=== PATIENT | female | born 1985 | race Caucasian/White ===

== ENCOUNTER 2018-09-15 14:35 | Emergency (ER) | payer OTHER, SELFPAY ==
[2018-09-15 14:45] VITALS: BP 136/88; PULSE 88; RESP 14; TEMP 37.2; O2SAT 100
--- NOTE | 2018-09-15 14:46 | DI.US.S_ITS ---
PROCEDURE: US OB LIMITED INDICATIONS: 10 WEEKS, VAGINAL BLEEDING OUTSIDE/PRIOR DATING DATA: Last menstrual period (LMP): 07/06/18. LMP-based estimated date of delivery (ANANTH): 10 weeks 1 day. First dating scan (date and location): 09/15/18. Estimated date of delivery (ANANTH) from first dating scan: 6 weeks 4 days. TECHNIQUE: Real-time scanning was performed of the fetus, with image documentation. COMPARISON: None. FINDINGS: Uterus is slightly prominent in size and contains an irregular shaped gestational sac that has a mean gestational sac diameter of 2.1 cm, correlating with an estimated gestational age of 7 weeks 0 days. A crown-rump length is visualized, measuring approximately 4 mm in length, which correlates with an estimated gestational age of 6 weeks 1 day. heart motion was not detected. No significant subchorionic hemorrhage is appreciated. A pillar type soft tissue structure protruding into the gestational sac demonstrate avid vascularity which appears to be separate from the gestational sac. There is a large simple appearing left adnexal cyst that measures up to 6.7 cm, which is not definitely connected to the left ovary. The left ovary is mildly enlarged at 4.6 x 1.5 x 2.7 cm. A simple appearing 2.8 cm left ovarian cyst is noted. The right ovary is within normal limits. Imaged bilateral maternal kidneys are unremarkable without hydronephrosis. IMPRESSION: 1. Abnormal appearing gestational sac and pole is of uncertain significance and could potentially represent a very early . A followup pelvic ultrasound in 2 weeks is recommended to document viability and interval change of the soft tissue structure with projecting into the gestational sac it demonstrates avid vascularity. 2. 6 cm left adnexal cyst. An additional left ovarian cyst is present. Dictated by: Lalit Garrido M.D. on 09/15/2018 at 15:22 Approved by: Lalit Garrido M.D. on 09/15/2018 at 15:27
[2018-09-15] MEDS: MORPHINE 2 MG/ML INJ IV (15:24)
[2018-09-15] MEDS: ONDANSETRON 4 MG/2 ML INJ IV (15:24)
[2018-09-15 15:41] LABS: Alanine Aminotransferase 28 IU/L (9-52); Albumin 4.6 g/dL (3.5-5.0); Albumin Globulin Ratio 1.6 (1.0-2.8); Alkaline Phosphatase 45 U/L (38-126); Aspartate Aminotransferase 19 IU/L (14-36); Bilirubin Total 0.4 mg/dL (0.2-1.3); Blood Urea Nitrogen 7 mg/dL (7-17); Calcium 9.4 mg/dL (8.4-10.2); Carbon Dioxide 24 mmol/L (22-32); Chloride 102 mmol/L (98-107); Estimated Glomerular Filt Rate > 60.0 mL/min (>60); Globulin 2.9 g/dL (1.7-4.1); Glucose 101 mg/dL (70-100); HEMOLYSIS < 15 (0-50); Potassium 3.6 mmol/L (3.4-5.1); Sodium 135 mmol/L (137-145); Total Protein 7.5 g/dL (6.3-8.2)
[2018-09-15 16:00] VITALS: BP 116/55; PULSE 74; RESP 16; O2SAT 100
[2018-09-15 16:00] LABS: Add Manual Diff / Slide Review NO; Basophils Absolute Auto 0 /uL (0-100); Basophils Percent Auto 0.1 % (0-2); Eosinophils Absolute Auto 100 /uL (0-450); Eosinophils Percent Auto 0.9 % (2-4); Hematocrit 37.8 % (36-46); Hemoglobin 13.1 g/dL (12.0-16.0); Lymphocytes Absolute Auto 1700 /uL (1100-4500); Mean Corpuscular HGB Conc 34.8 % (30-36); Mean Corpuscular Hemoglobin 30.4 PG (26-34); Mean Corpuscular Volume 87.3 fL (80-100); Monocytes Absolute Auto 900 /uL (0-900); Neutrophils Absolute Auto 10300 /uL (1500-7000); Platelet Count 266 X10^3/uL (150-400); Red Blood Cell Count 4.33 X10^6/uL (4.0-5.2); Red Cell Distribution Width 12.5 % (11.6-14.8)
--- NOTE | 2018-09-15 16:09 | ED.PREGNANCY ---
HPI - <JUICE Liriano - Last Filed: 09/15/18 22:13> General Chief complaint: Vaginal Bleeding Stated complaint: 10wks preg, thinks having a miscarriage Time Seen by Provider: 09/15/18 14:42 Source: patient Mode of arrival: ambulatory Limitations: no limitations History of Present Illness HPI Narrative: Healthy 32-year-old female that is a nonsmoker that is approximately 10 weeks 1 sent here from [facility] for further evaluation due to vaginal bleeding and cramping since last night. She reports that she has also been passing clots. She reports going through several pads while on the [place] right a crossed. She reports that her bleeding has slowed down a since arriving at the hospital. She also reports that her cramping is no better. She denies any fevers or chills. No urinary pain. No trauma to the area. She states that she thinks her blood type is A-positive. She has not had an ultrasound as of yet. No flank pain. MD Complaint: vaginal bleeding Patient : Yes Related Data Home Medications Medication Instructions Recorded Confirmed No Known Home Medications 09/15/18 09/18/18 Allergies Allergy/AdvReac Type Severity Reaction Status Date / Time No Known Drug Allergies Allergy Verified 09/18/18 10:13 Review of Systems <JUICE Liriano - Last Filed: 09/15/18 22:13> Constitutional Denies chills, Denies fever(s), Denies lethargy and Denies weakness Eyes Denies change in vision, Denies eye discharge, Denies irritation and Denies loss of vision ENT Ears, Nose, Mouth, and Throat: Denies change in voice, Denies neck pain and Denies sore throat Cardiovascular Denies chest pain, Denies irregular heart rhythm, Denies lightheadedness, Denies palpitations, Denies dyspnea, Denies dyspnea on exertion and Denies orthopnea Respiratory Denies cough, Denies dyspnea, Denies dyspnea on exertion and Denies wheezing Gastrointestinal Gastrointestinal: Denies abdominal pain, Denies change in bowel habits, Denies diarrhea, Denies nausea and Denies vomiting Genitourinary Denies hematuria, Denies flank pain, Denies urinary incontinence and Denies urinary urgency Comments: Vaginal bleeding with Musculoskeletal Denies neck pain Integumentary/Breasts Denies pruritus, Denies erythema, Denies rash and Denies wounds Neurologic Denies confusion, Denies loss of vision and Denies weakness Psychiatric Denies anxiety, Denies confusion, Denies depression, Denies homicidal ideation and Denies suicidal ideation Endocrine Denies palpitations Allergic/Immunologic Denies wheezing PMFSH - <Phillip McconnellJUICE johnson - Last Filed: 09/15/18 22:13> Past Medical History Patient : Yes Exam <JUICE Liriano - Last Filed: 09/15/18 22:13> Initial Vital Signs Initial Vital Signs: Vital Signs Temperature 99.0 F 09/15/18 14:45 Pulse Rate 88 09/15/18 14:45 Respiratory Rate 14 09/15/18 14:45 Blood Pressure 136/88 09/15/18 14:45 Pulse Oximetry 100 09/15/18 14:45 Const General: cooperative and well developed Nutritional Appearance: well nourished Orientation: alert, awake, oriented x3 and not confused HENSD Mouth: oral mucosae normal and moist mucous membranes Eyes Conjunctivae: conjunctivae normal Sclera: sclerae normal Pupils: PERRL EOM: EOM intact bilaterally Resp Effort & Inspection: normal respiratory effort, able to speak in complete sentences, no respiratory distress and no use of accessory muscles Auscultation: clear to auscultation bilaterally, no rales, no rhonchi and no wheezes Cardio Rate: regular rate Rhythm: regular rhythm Heart Sounds: no click, no gallops, no murmurs and no rubs Pulses: normal peripheral pulses GI Inspection: non-distended Palpation: soft, no hepatosplenomegaly, No guarding, No pulsatile mass and No tender Auscultation: normal bowel sounds Other: pubic cramping/ discomfort Skin General: no rashes or lesions noted, No jaundice and No petechiae Neuro General: alert, oriented x3, gait normal and no focal motor deficits Speech: speech normal <Sayra Arango DO - Last Filed: 09/19/18 02:47> Initial Vital Signs Initial Vital Signs: Vital Signs Temperature 99.0 F 09/15/18 14:45 Pulse Rate 88 09/15/18 14:45 Respiratory Rate 14 09/15/18 14:45 Blood Pressure 136/88 09/15/18 14:45 Pulse Oximetry 100 09/15/18 14:45 Course <JUICE Liriano - Last Filed: 09/15/18 22:13> Orders Ordered: Discontinued Medications Morphine Sulfate (Morphine) 2 mg IV NOW ONE Stop: 09/15/18 15:24 Last Admin: 09/15/18 15:24 Dose: 2 mg Ondansetron HCl (Zofran) 4 mg IV NOW ONE Stop: 09/15/18 15:23 Last Admin: 09/15/18 15:24 Dose: 4 mg Vital Signs - 8 hr 09/15/18 14:45 09/15/18 16:00 09/15/18 18:22 Temperature 99.0 F Pulse Rate 88 74 88 Respiratory Rate 14 16 14 Blood Pressure 136/88 Blood Pressure [Right Arm] 116/55 L 118/72 Pulse Oximetry 100 100 98 <Sayra Arango DO - Last Filed: 09/19/18 02:47> Orders Ordered: Discontinued Medications Morphine Sulfate (Morphine) 2 mg IV NOW ONE Stop: 09/15/18 15:24 Last Admin: 09/15/18 15:24 Dose: 2 mg Ondansetron HCl (Zofran) 4 mg IV NOW ONE Stop: 09/15/18 15:23 Last Admin: 09/15/18 15:24 Dose: 4 mg Vital Signs - 8 hr 09/15/18 14:45 09/15/18 16:00 09/15/18 18:22 Temperature 99.0 F Pulse Rate 88 74 88 Respiratory Rate 14 16 14 Blood Pressure 136/88 Blood Pressure [Right Arm] 116/55 L 118/72 Pulse Oximetry 100 100 98 MDM - OB/Uterine Contractions <JUICE Liriano - Last Filed: 09/15/18 22:13> Lab Data Result diagrams: 09/15/18 15:04 09/15/18 15:04 Lab Results 09/15/18 09/15/18 09/15/18 Range/Units 15:04 15:04 15:04 WBC 13.0 H (4.5-11.0) X10^3/uL RBC 4.33 (4.0-5.2) X10^6/uL Hgb 13.1 (12.0-16.0) g/dL Hct 37.8 (36-46) % MCV 87.3 (80-100) fL MCH 30.4 (26-34) PG MCHC 34.8 (30-36) % RDW 12.5 (11.6-14.8) % Plt Count 266 (150-400) X10^3/uL Neut % (Auto) 79.0 H (50-75) % Lymph % (Auto) 13.0 L (25-40) % [place] % (Auto) 7.0 (3-14) % Eos % (Auto) 0.9 L (2-4) % Baso % (Auto) 0.1 (0-2) % Neut # (Auto) 98553 H (7479-9798) /uL Lymph # (Auto) 1700 (3657-6845) /uL [place] # (Auto) 900 (0-900) /uL Eos # (Auto) 100 (0-450) /uL Baso # (Auto) 0 (0-100) /uL Sodium 135 L (137-145) mmol/L Potassium 3.6 (3.4-5.1) mmol/L Chloride 102 (98-107) mmol/L Carbon Dioxide 24 (22-32) mmol/L BUN 7 (7-17) mg/dL Creatinine 0.50 L (0.52-1.04) mg/dL Estimated GFR > 60.0 (>60) mL/min BUN/Creatinine Ratio 14.0 (6-22) Glucose 101 H (70-100) mg/dL Calcium 9.4 (8.4-10.2) mg/dL Total Bilirubin 0.4 (0.2-1.3) mg/dL AST 19 (14-36) IU/L ALT 28 (9-52) IU/L Alkaline Phosphatase 45 (38-126) U/L Total Protein 7.5 (6.3-8.2) g/dL Albumin 4.6 (3.5-5.0) g/dL Globulin 2.9 (1.7-4.1) g/dL Albumin/Globulin Ratio 1.6 (1.0-2.8) HCG, Quant 31121 mIU/mL Urine Color Urine Appearance Urine pH (4.5-8.0) Ur Specific [place] (1.000-1.035) Urine Protein (Negative) Urine Glucose (UA) (Negative) g/dL Urine Ketones (NEGATIVE) Urine Occult Blood (Negative) Urine Nitrate (Negative) Urine Bilirubin (NEGATIVE) Urine Urobilinogen (0.2) E.U./dL Ur Leukocyte Esterase (NEGATIVE) Urine RBC (0-5/HPF) Urine WBC (0-5/HPF) Ur Squamous Epith Cells Amorphous Sediment Urine Bacteria (None) Ur Culture Indicated? Blood Type A Positive 09/15/18 Range/Units 16:13 WBC (4.5-11.0) X10^3/uL RBC (4.0-5.2) X10^6/uL Hgb (12.0-16.0) g/dL Hct (36-46) % MCV (80-100) fL MCH (26-34) PG MCHC (30-36) % RDW (11.6-14.8) % Plt Count (150-400) X10^3/uL Neut % (Auto) (50-75) % Lymph % (Auto) (25-40) % [place] % (Auto) (3-14) % Eos % (Auto) (2-4) % Baso % (Auto) (0-2) % Neut # (Auto) (7850-1892) /uL Lymph # (Auto) (8118-3576) /uL [place] # (Auto) (0-900) /uL Eos # (Auto) (0-450) /uL Baso # (Auto) (0-100) /uL Sodium (137-145) mmol/L Potassium (3.4-5.1) mmol/L Chloride (98-107) mmol/L Carbon Dioxide (22-32) mmol/L BUN (7-17) mg/dL Creatinine (0.52-1.04) mg/dL Estimated GFR (>60) mL/min BUN/Creatinine Ratio (6-22) Glucose (70-100) mg/dL Calcium (8.4-10.2) mg/dL Total Bilirubin (0.2-1.3) mg/dL AST (14-36) IU/L ALT (9-52) IU/L Alkaline Phosphatase (38-126) U/L Total Protein (6.3-8.2) g/dL Albumin (3.5-5.0) g/dL Globulin (1.7-4.1) g/dL Albumin/Globulin Ratio (1.0-2.8) HCG, Quant mIU/mL Urine Color Red Urine Appearance Cloudy Urine pH 8.0 (4.5-8.0) Ur Specific [place] 1.015 (1.000-1.035) Urine Protein 2+ H (Negative) Urine Glucose (UA) Negative (Negative) g/dL Urine Ketones 1+ H (NEGATIVE) Urine Occult Blood 3+ H (Negative) Urine Nitrate Negative (Negative) Urine Bilirubin Negative (NEGATIVE) Urine Urobilinogen 0.2 (0.2) E.U./dL Ur Leukocyte Esterase Trace H (NEGATIVE) Urine RBC >100/hpf H (0-5/HPF) Urine WBC 1-5/hpf (0-5/HPF) Ur Squamous Epith Cells None seen Amorphous Sediment 1+ Urine Bacteria None seen (None) Ur Culture Indicated? Specimen cultured Blood Type MDM Narrative Medical decision making narrative: CBC shows white count at 13 K and neutrophils at 10 K. chemistry panel was Obtained was unremarkable. ABO Rh resulted as a positive. HCG quantitative value was returned at 39,000. Ob ultrasound was obtained and shows abnormal appearing gestational sac roughly showing age of 6 weeks. No heart motion is detected. Ultrasound also shows a left ovarian cyst and 6 cm left adnexal cyst. Urinalysis was obtained was negative for urinary tract infection. Discussed case with Dr. Alfrao Ob who recommends patient be discharged home have them call their office tomorrow to schedule follow-up appointment here in the next few days for further evaluation. Patient is instructed on threatened protocols such as no strenuous activity and pelvic rest. For any worsening symptoms or bleed return to the emergency room. <Sayra Arango, - Last Filed: 09/19/18 02:47> Lab Data Lab Results 09/15/18 09/15/18 09/15/18 Range/Units 15:04 15:04 15:04 WBC 13.0 H (4.5-11.0) X10^3/uL RBC 4.33 (4.0-5.2) X10^6/uL Hgb 13.1 (12.0-16.0) g/dL Hct 37.8 (36-46) % MCV 87.3 (80-100) fL MCH 30.4 (26-34) PG MCHC 34.8 (30-36) % RDW 12.5 (11.6-14.8) % Plt Count 266 (150-400) X10^3/uL Neut % (Auto) 79.0 H (50-75) % Lymph % (Auto) 13.0 L (25-40) % [place] % (Auto) 7.0 (3-14) % Eos % (Auto) 0.9 L (2-4) % Baso % (Auto) 0.1 (0-2) % Neut # (Auto) 60867 H (5128-1842) /uL Lymph # (Auto) 1700 (5230-1246) /uL [place] # (Auto) 900 (0-900) /uL Eos # (Auto) 100 (0-450) /uL Baso # (Auto) 0 (0-100) /uL Sodium 135 L (137-145) mmol/L Potassium 3.6 (3.4-5.1) mmol/L Chloride 102 (98-107) mmol/L Carbon Dioxide 24 (22-32) mmol/L BUN 7 (7-17) mg/dL Creatinine 0.50 L (0.52-1.04) mg/dL Estimated GFR > 60.0 (>60) mL/min BUN/Creatinine Ratio 14.0 (6-22) Glucose 101 H (70-100) mg/dL Calcium 9.4 (8.4-10.2) mg/dL Total Bilirubin 0.4 (0.2-1.3) mg/dL AST 19 (14-36) IU/L ALT 28 (9-52) IU/L Alkaline Phosphatase 45 (38-126) U/L Total Protein 7.5 (6.3-8.2) g/dL Albumin 4.6 (3.5-5.0) g/dL Globulin 2.9 (1.7-4.1) g/dL Albumin/Globulin Ratio 1.6 (1.0-2.8) HCG, Quant 96540 mIU/mL Urine Color Urine Appearance Urine pH (4.5-8.0) Ur Specific [place] (1.000-1.035) Urine Protein (Negative) Urine Glucose (UA) (Negative) g/dL Urine Ketones (NEGATIVE) Urine Occult Blood (Negative) Urine Nitrate (Negative) Urine Bilirubin (NEGATIVE) Urine Urobilinogen (0.2) E.U./dL Ur Leukocyte Esterase (NEGATIVE) Urine RBC (0-5/HPF) Urine WBC (0-5/HPF) Ur Squamous Epith Cells Amorphous Sediment Urine Bacteria (None) Ur Culture Indicated? Blood Type A Positive 09/15/18 Range/Units 16:13 WBC (4.5-11.0) X10^3/uL RBC (4.0-5.2) X10^6/uL Hgb (12.0-16.0) g/dL Hct (36-46) % MCV (80-100) fL MCH (26-34) PG MCHC (30-36) % RDW (11.6-14.8) % Plt Count (150-400) X10^3/uL Neut % (Auto) (50-75) % Lymph % (Auto) (25-40) % [place] % (Auto) (3-14) % Eos % (Auto) (2-4) % Baso % (Auto) (0-2) % Neut # (Auto) (1300-6209) /uL Lymph # (Auto) (0829-9470) /uL [place] # (Auto) (0-900) /uL Eos # (Auto) (0-450) /uL Baso # (Auto) (0-100) /uL Sodium (137-145) mmol/L Potassium (3.4-5.1) mmol/L Chloride (98-107) mmol/L Carbon Dioxide (22-32) mmol/L BUN (7-17) mg/dL Creatinine (0.52-1.04) mg/dL Estimated GFR (>60) mL/min BUN/Creatinine Ratio (6-22) Glucose (70-100) mg/dL Calcium (8.4-10.2) mg/dL Total Bilirubin (0.2-1.3) mg/dL AST (14-36) IU/L ALT (9-52) IU/L Alkaline Phosphatase (38-126) U/L Total Protein (6.3-8.2) g/dL Albumin (3.5-5.0) g/dL Globulin (1.7-4.1) g/dL Albumin/Globulin Ratio (1.0-2.8) HCG, Quant mIU/mL Urine Color Red Urine Appearance Cloudy Urine pH 8.0 (4.5-8.0) Ur Specific [place] 1.015 (1.000-1.035) Urine Protein 2+ H (Negative) Urine Glucose (UA) Negative (Negative) g/dL Urine Ketones 1+ H (NEGATIVE) Urine Occult Blood 3+ H (Negative) Urine Nitrate Negative (Negative) Urine Bilirubin Negative (NEGATIVE) Urine Urobilinogen 0.2 (0.2) E.U./dL Ur Leukocyte Esterase Trace H (NEGATIVE) Urine RBC >100/hpf H (0-5/HPF) Urine WBC 1-5/hpf (0-5/HPF) Ur Squamous Epith Cells None seen Amorphous Sediment 1+ Urine Bacteria None seen (None) Ur Culture Indicated? Specimen cultured Blood Type Discharge Plan Departure Patient Disposition: Home Clinical Impression: Threatened Discharge Date/Time: 09/15/18 18:24 Interventions: ED Discharge Assessment Last Done: 09/15/18 18:23 Instructions: DI for Threatened Activity Restrictions/Additional Instructions: Laboratory results today were unremarkable. Blood type was resulted as a positive. Ultrasound shows intrauterine fetus with no heart activity apparent approximately size comparable to 6 week . Signs and symptoms presents as threatened /miscarriage. Follow up with OB in the next few days. Call the office tomorrow to schedule follow-up appointment. Use [id number] Tylenol as needed for any discomfort. Follow up sooner or return to the emergency room for any worsening symptoms or bleeding. Prescriptions: No Action No Known Home Medications RF: 0 Referrals: Rosario Oropeza MD [Primary Care Provider] - Janice Alfaro MD [Physician] - <Sayra Arango DO - Last Filed: 09/19/18 02:47> Cosign ED Attending Cosignature Attestation: I was immediately available in the department for consultation. This documentation has been reviewed and I agree with assessment and plan. Supervised by Sayra Arango DO
[2018-09-15 16:23] LABS: HCG Quantitative /Beta subunit 39308 mIU/mL
[2018-09-15 16:49] LABS: Bacteria Urine None Seen
[2018-09-15 16:50] LABS: Appearance Urine UA CLOUDY; Bilirubin Urine UA NEGATIVE (NEGATIVE); Color Urine UA RED; Glucose Urine UA NEGATIVE (Negative); Ketones Urine UA 1+ (NEGATIVE); Leukocyte Esterase Urine UA TRACE (NEGATIVE); Nitrite Urine UA NEGATIVE (Negative); Occult Blood Urine UA 3+ (Negative); Protein Urine UA 2+ (Negative); Specific Gravity Urine UA 1.015 (1.000-1.035); Urobilinogen Urine UA 0.2 E.U./dL (0.2)
[2018-09-15 17:41] LABS: Amorphous Sediment Urine 1+; Culture Indicated Urine Specimen Cultured; RBC Urine >100/HPF (0-5/HPF); Squamous Epithelial Cell Urine None Seen; WBC Urine 1-5/HPF (0-5/HPF)
[2018-09-15 18:22] VITALS: BP 118/72; PULSE 88; RESP 14; O2SAT 98
== END 2018-09-15 18:24 | disposition home or self-care (01) ==
PROVIDERS: Emergency Provider Nurse Practitioner Family; PCP Family Medicine
DX: O20.0 Threatened abortion (principal); Z3A.10 10 weeks gestation of pregnancy
CPT/HCPCS: 36591; 76815; 76817; 80053; 81001; 84702; 85025; 86900; 86901; 87086; 96374; 96375; 99282; 99284; J2270; J2405

== ENCOUNTER → 2018-09-18 14:56 | Outpatient (CLI) | payer OTHER, SELFPAY ==
--- NOTE | 2018-09-18 | DI.US.S_ITS ---
ULTRASOUND OF LEFT BREAST: 09/18/2018 CLINICAL: Palpable left breast lump. Comparison is made to exams dated: 03/12/2018 ultrasound and 03/12/2018 mammogram - [facility]. Real-time ultrasound of the left breast was performed. [place] scale images of the real-time examination were reviewed. No abnormalities were seen sonographically in the left breast. Previously noted complicated cyst in the left breast 12:00 axis has resolved. IMPRESSION: NEGATIVE There is no sonographic evidence of malignancy. There is no abnormality seen in the left breast to correspond with the previous complicated left breast cyst. This has resolved since February 2018 evaluation. Follow-up with ACR/ACS guidelines. This exam was interpreted at Station ID: [id number]. Electronically Signed By: Ras Vick M.D. aty/:09/18/2018 15:33:59 letter sent: Normal Exam Ultrasound BI-RADS: 1 Negative
== END ==
PROVIDERS: PCP Nurse Practitioner Family; Visit Provider Nurse Practitioner Family
DX: N60.02 Solitary cyst of left breast (principal)
CPT/HCPCS: 76642

== ENCOUNTER → 2023-04-19 08:33 | Outpatient (CLI) | payer OTHER, MEDICAID, SELFPAY | PROVIDERS: PCP Family Medicine; Visit Provider Physician Assistant Medical | DX: J02.9 Acute pharyngitis, unspecified (principal) | CPT/HCPCS: 87070 ==

== ENCOUNTER → 2024-12-29 09:07 | Outpatient (CLI) | payer OTHER, MEDICAID, SELFPAY ==
[2024-12-29 19:09] LABS: Alanine Aminotransferase 16 IU/L (<35); Albumin 4.5 g/dL (3.5-5.0); Albumin Globulin Ratio 1.9 (1.0-2.8); Alkaline Phosphatase 44 U/L (38-126); Aspartate Aminotransferase 22 IU/L (14-36); BUN Creatinine Ratio 15.4 (6-22); Bilirubin Total 0.6 mg/dL (0.2-1.3); Blood Urea Nitrogen 10 mg/dL (7-17); Calcium 9.4 mg/dL (8.4-10.2); Carbon Dioxide 26 mmol/L (22-32); Chloride 104 mmol/L (98-107); Cholesterol 207 mg/dL (140-199); Estimated Glomerular Filt Rate > 60 mL/min (>60); Globulin 2.4 g/dL (1.7-4.1); Glucose 88 mg/dL (70-99); HDL Cholesterol 71 mg/dL (40-60); HEMOLYSIS < 15 (0-50); LDL Cholesterol Calculated 117 mg/dL (<100); Potassium 4.3 mmol/L (3.4-5.1); Sodium 137 mmol/L (137-145); Total Protein 6.9 g/dL (6.3-8.2); Triglycerides 93 mg/dL (35-150)
== END ==
PROVIDERS: PCP Family Medicine; Visit Provider Physician Assistant Medical
DX: Z13.6 Encounter for screening for cardiovascular disorders (principal); Z13.1 Encounter for screening for diabetes mellitus
CPT/HCPCS: 80053; 80061